=== PATIENT | female | born 1950 | race Caucasian/White ===

== ENCOUNTER 2018-12-02 21:18 | Inpatient (IN) ==
[2018-12-02 21:40] LABS: Basophils % 0.5 %; Eosinophils # 0.1 K/mcL (0.0-0.6); Eosinophils % 1.2 %; Hematocrit 40.3 % (35.3-44.9); Hemoglobin 13.3 g/dL (11.5-15.4); Immature Granulocytes % 0.2 % (0-4); Lymphocytes # 1.6 K/mcL (0.6-4.6); Lymphocytes % 19.2 %; Mean Corpuscular Hemoglobin 28.8 pg (28.0-33.3); Mean Corpuscular Volume 87.2 fL (83.0-100.0); Mean Platelet Volume 10.1 fL (9.4-12.4); Monocytes # 0.6 K/mcL (0.0-1.3); Neutrophils # 6.2 K/mcL (1.6-8.9); Platelet Count 176 K/mcL (140-400); Red Blood Count 4.62 M/mcL (3.82-4.97); Segmented Neutrophils % 71.9 %; White Blood Count 8.6 K/mcL (4.3-11.1)
[2018-12-02 21:47] LABS: INR 1.1; Prothrombin Time 12.1 Seconds (9.4-12.1)
[2018-12-02 21:59] LABS: Albumin 3.9 g/dL (3.5-5.7); Albumin/Globulin Ratio 1.4 (1.1-2.2); Bilirubin,Direct 0.2 mg/dL (0.0-0.2); Bilirubin,Indirect 0.4 mg/dL (0.0-1.2); Bilirubin,Total 0.6 mg/dL (0.3-1.0); Globulin 2.8 g/dL (2.4-3.5); Total Protein 6.7 g/dL (6.4-8.9)
[2018-12-02 22:15] LABS: BUN/Creatinine Ratio 19 (6-26); Blood Urea Nitrogen 15 mg/dL (8-23); Calcium 9.5 mg/dL (8.6-10.3); Carbon Dioxide 25 mEq/L (23-29); Chloride 103 mEq/L (98-107); Glucose 197 mg/dL (70-105); Lipase > 1800 Units/L (11-82); Osmolality,Calculated 292 (280-300); Potassium 3.8 mEq/L (3.5-5.1); Sodium 138 mEq/L (136-145); Troponin I < 0.03 ng/mL (< 0.04); eGFR For African Americans > 60 (> 60); eGFR For Non-African Americans > 60 (> 60)
[2018-12-02] MEDS ORDERED: Isovue-370 500 ML BOTTLE IVP ONE (22:26)
[2018-12-02] MEDS ORDERED: Morphine Sulfate 2 MG/ML SYRINGE IVP ONE (22:35)
[2018-12-02] MEDS ORDERED: Ondansetron 4 MG/2 ML VIAL IVP ONE (22:35)
[2018-12-02] MEDS ORDERED: 0.9 % Sodium Chloride 1,000 ML IV ONE (22:36)
[2018-12-02] MEDS: Nitroglycerin 0.4 MG TAB.SUBL SL SCH ×2 (22:44→22:45)
[2018-12-02 22:54] LABS: Amylase 800 Units/L (29-103)
[2018-12-03] MEDS ORDERED: *HR* HYDROmorphone (PF) 1 MG/ML SYRINGE IVP ONE (00:05)
[2018-12-03] MEDS ORDERED: Promethazine 12.5 MG in 0.9 % Sodium Chloride 50 ML IVPB PRN (01:05)
[2018-12-03] MEDS ORDERED: *HR* Promethazine 25 MG/ML VIAL IV ONE (01:30)
[2018-12-03] MEDS ORDERED: Naloxone 0.4 MG/ML INJ IVP PRN (04:42)
[2018-12-03] MEDS ORDERED: *HR* OxyCODONE Immed Rel 5 MG TABLET PO PRN (04:57)
[2018-12-03] MEDS ORDERED: *HR* Labetalol 20 MG/4 ML SYRINGE IVP PRN (05:00)
[2018-12-03] MEDS: 0.9 % Sodium Chloride 1,000 ML IVC SCH ×4 (05:39→20:12)
[2018-12-03] MEDS: Gabapentin 300 MG CAPSULE PO SCH ×3 (08:13→20:10)
[2018-12-03] MEDS ORDERED: *HR* Dextrose 50 % in Water (Syg) 50 ML SYRINGE IVP PRN (11:58)
[2018-12-03] MEDS ORDERED: D5% in Water 1,000 ML IVC PRN (11:58)
[2018-12-03] MEDS ORDERED: Dextrose Gel 15 GM/37.5 ML TUBE PO PRN ×2 (11:58)
[2018-12-03] MEDS: Insulin LISPRO 300 UNITS/3 ML VIAL SQ SCH ×2 (13:01→18:08)
[2018-12-03] MEDS: *HR* HYDROmorphone (PF) 1 MG/ML SYRINGE IVP PRN ×2 (13:02→20:12)
[2018-12-03] MEDS: Ondansetron ODT 4 MG TAB.RAPDIS SL PRN (16:03)
[2018-12-03] MEDS: *HR* Heparin 5,000 UNIT/ML VIAL SQ SCH (17:55)
[2018-12-03] MEDS: Pantoprazole 40 MG VIAL IVP SCH (22:52)
[2018-12-04] MEDS: 0.9 % Sodium Chloride 1,000 ML IVC SCH ×3 (01:30→20:06)
[2018-12-04] MEDS: Insulin LISPRO 300 UNITS/3 ML VIAL SQ SCH ×4 (05:46→16:49)
[2018-12-04] MEDS: Pantoprazole 40 MG VIAL IVP SCH ×2 (05:46→16:40)
[2018-12-04] MEDS: *HR* Heparin 5,000 UNIT/ML VIAL SQ SCH ×2 (05:47→16:49)
[2018-12-04] MEDS: *HR* HYDROmorphone (PF) 1 MG/ML SYRINGE IVP PRN ×2 (05:49→16:41)
[2018-12-04 06:31] LABS: Basophils % 0.3 %; Eosinophils % 0.4 %; Hematocrit 37.4 % (35.3-44.9); Hemoglobin 11.9 g/dL (11.5-15.4); Immature Granulocytes % 0.5 % (0-4); Lymphocytes # 0.8 K/mcL (0.6-4.6); Lymphocytes % 10.5 %; Mean Corpuscular HGB Conc 31.8 g/dL (31.6-35.5); Mean Corpuscular Hemoglobin 28.6 pg (28.0-33.3); Mean Corpuscular Volume 89.9 fL (83.0-100.0); Mean Platelet Volume 10.1 fL (9.4-12.4); Monocytes # 0.5 K/mcL (0.0-1.3); Monocytes % 6.1 %; Neutrophils # 6.4 K/mcL (1.6-8.9); Platelet Count 162 K/mcL (140-400); Red Blood Count 4.16 M/mcL (3.82-4.97); Segmented Neutrophils % 82.2 %; White Blood Count 7.7 K/mcL (4.3-11.1)
[2018-12-04 06:55] LABS: Alanine Aminotransferase 15 Units/L (7-52); Albumin 3.4 g/dL (3.5-5.7); Albumin/Globulin Ratio 1.4 (1.1-2.2); Alkaline Phosphatase 55 Units/L (34-104); Aspartate Amino Transferase 14 Units/L (13-39); BUN/Creatinine Ratio 16 (6-26); Bilirubin,Total 0.8 mg/dL (0.3-1.0); Blood Urea Nitrogen 8 mg/dL (8-23); Calcium 8.8 mg/dL (8.6-10.3); Carbon Dioxide 26 mEq/L (23-29); Chloride 103 mEq/L (98-107); Globulin 2.5 g/dL (2.4-3.5); Glucose 154 mg/dL (70-105); Magnesium 1.5 mg/dL (1.6-2.6); Osmolality,Calculated 285 (280-300); Phosphorous 2.4 mg/dL (2.7-4.5); Sodium 137 mEq/L (136-145); Total Protein 5.9 g/dL (6.4-8.9); eGFR For African Americans > 60 (> 60); eGFR For Non-African Americans > 60 (> 60)
[2018-12-04] MEDS ORDERED: 0.9 % Sodium Chloride 1,000 ML IVC SCH (07:51)
[2018-12-04] MEDS: FLUoxetine 20 MG CAPSULE PO SCH (08:17)
[2018-12-04] MEDS: Gabapentin 300 MG CAPSULE PO SCH ×3 (08:17→20:07)
[2018-12-04] MEDS: Aspirin Enteric Coated 81 MG Tablet PO SCH (08:18)
[2018-12-04] MEDS: Ondansetron ODT 4 MG TAB.RAPDIS SL PRN (08:23)
[2018-12-04 19:40] LABS: Triglycerides 80 mg/dL (< 150)
[2018-12-05] MEDS ORDERED: Acetaminophen 325 MG TABLET PO PRN ×2 (04:06→13:30)
[2018-12-05] MEDS: *HR* Heparin 5,000 UNIT/ML VIAL SQ SCH (04:42)
[2018-12-05] MEDS: Pantoprazole 40 MG VIAL IVP SCH (04:42)
[2018-12-05 05:42] LABS: Basophils % 0.3 %; Eosinophils # 0.2 K/mcL (0.0-0.6); Eosinophils % 2.7 %; Hematocrit 34.8 % (35.3-44.9); Hemoglobin 11.4 g/dL (11.5-15.4); Immature Granulocytes % 0.6 % (0-4); Lymphocytes # 0.8 K/mcL (0.6-4.6); Lymphocytes % 12.7 %; Mean Corpuscular HGB Conc 32.8 g/dL (31.6-35.5); Mean Corpuscular Hemoglobin 28.9 pg (28.0-33.3); Mean Corpuscular Volume 88.3 fL (83.0-100.0); Monocytes # 0.4 K/mcL (0.0-1.3); Monocytes % 6.5 %; Neutrophils # 4.8 K/mcL (1.6-8.9); Platelet Count 133 K/mcL (140-400); Red Blood Count 3.94 M/mcL (3.82-4.97); Segmented Neutrophils % 77.2 %; White Blood Count 6.3 K/mcL (4.3-11.1)
[2018-12-05 06:02] LABS: Alanine Aminotransferase 15 Units/L (7-52); Albumin 3.2 g/dL (3.5-5.7); Albumin/Globulin Ratio 1.3 (1.1-2.2); Alkaline Phosphatase 51 Units/L (34-104); Aspartate Amino Transferase 16 Units/L (13-39); BUN/Creatinine Ratio 13 (6-26); Bilirubin,Total 0.7 mg/dL (0.3-1.0); Blood Urea Nitrogen 7 mg/dL (8-23); Calcium 8.6 mg/dL (8.6-10.3); Carbon Dioxide 25 mEq/L (23-29); Chloride 104 mEq/L (98-107); Globulin 2.4 g/dL (2.4-3.5); Glucose 175 mg/dL (70-105); Magnesium 1.9 mg/dL (1.6-2.6); Osmolality,Calculated 284 (280-300); Phosphorous 2.2 mg/dL (2.7-4.5); Potassium 3.5 mEq/L (3.5-5.1); Sodium 136 mEq/L (136-145); Total Protein 5.6 g/dL (6.4-8.9); eGFR For African Americans > 60 (> 60); eGFR For Non-African Americans > 60 (> 60)
[2018-12-05] MEDS: 0.9 % Sodium Chloride 1,000 ML IVC SCH ×2 (07:15→07:16)
[2018-12-05] MEDS: Gabapentin 300 MG CAPSULE PO SCH (10:09)
[2018-12-05] MEDS: FLUoxetine 20 MG CAPSULE PO SCH (10:09)
[2018-12-05] MEDS: Aspirin Enteric Coated 81 MG Tablet PO SCH (10:09)
[2018-12-05] MEDS: Insulin LISPRO 300 UNITS/3 ML VIAL SQ SCH ×2 (10:10→12:41)
[2018-12-05 10:32] VITALS: BP 177/78
[2018-12-05] MEDS ORDERED: *HR* OxyCODONE Immed Rel 5 MG TABLET PO PRN (13:29)
[2018-12-08 09:40] LABS: Cancer Antigen-GI (CA 19-9) 20 U/mL (0-37); Immunoglobulin G Subclass 4 7 mg/dL (1-123)
== END 2018-12-05 15:27 | disposition home or self-care (01) | DRG 439 ==
LOC: EMEROOARM 21:18 → 3ANU 21:18 → SUATTDRO 12-03 02:17 → 3ANU 12-03 02:37
PROVIDERS: ADMIT Family Medicine; ATTEND Internal Medicine